=== PATIENT | male | born 1965 | race Caucasian/White ===

== ENCOUNTER 2024-10-01 09:13 | Emergency (ER) | payer BC ==
[2024-10-01 09:59] LABS: BASOPHILS PERCENT AUTO 0.9 % (0.3-3.8); EOSINOPHILS ABSOLUTE AUTO 0.4 x10-3/uL (0.0-0.6); EOSINOPHILS PERCENT AUTO 8.2 % (0.1-6.8); HEMATOCRIT 50.9 % (38.3-50.1); HEMOGLOBIN 17.3 g/dL (12.9-17.7); LYMPHOCYTES ABSOLUTE AUTO 1.1 x10-3/uL (0.5-4.5); LYMPHOCYTES PERCENT AUTO 24.4 % (15.8-45.3); MEAN CORPUSCULAR HEMOGLOBIN 34.7 pg (27.0-33.3); MEAN CORPUSCULAR HGB CONC 33.9 g/dL (28.7-35.3); MEAN CORPUSCULAR VOLUME 102.3 fL (80.8-98.7); MEAN PLATELET VOLUME 7.3 fL (6.7-11.0); MONOCYTES ABSOLUTE AUTO 0.7 x10-3/uL (0.0-1.2); MONOCYTES PERCENT AUTO 14.2 % (5.5-15.2); NEUTROPHILS ABSOLUTE AUTO 2.5 x10-3/uL (1.7-6.9); NEUTROPHILS PERCENT AUTO 52.3 % (40.3-71.8); PLATELET COUNT,PLT 239 x10(3)uL (117-477); RED CELL DISTRIBUTION WIDTH 18.3 % (12.4-15.0); WHITE BLOOD CELL COUNT,WBC 4.7 x10-3/uL (3.2-10.1)
[2024-10-01 09:59] LABS: APPEARANCE,URINE CLEAR (CLEAR); BILIRUBIN,URINE NEGATIVE (NEGATIVE); COLOR,URINE YELLOW (YELLOW); GLUCOSE,URINE NORMAL (NORMAL); KETONES,URINE NEGATIVE (NEGATIVE); LEUKOCYTE ESTERASE,URINE NEGATIVE (NEGATIVE); NITRITE,URINE NEGATIVE (NEGATIVE); OCCULT BLOOD,URINE LARGE (NEGATIVE); PROTEIN,URINE TRACE mg/dL (NEGATIVE); UROBILINOGEN,URINE NORMAL (NEGATIVE)
[2024-10-01 10:00] LABS: BLOOD UREA NITROGEN,BUN 9 mg/dL (7-18); CALCIUM 8.2 mg/dL (8.6-10.2); CARBON DIOXIDE,CO2 29 mmol/L (21-32); CHLORIDE,CL 106 mmol/L (100-110); EST CRCL DRUG DOSING (CG) 62.75 mL/min; ESTIMATED GFR 88 mL/min (>60); GLUCOSE RANDOM 95 mg/dL (80-116); POTASSIUM,K 3.9 mmol/L (3.5-5.3); SODIUM,NA 142 mmol/L (135-145)
[2024-10-01 10:06] LABS: A/G RATIO 0.6; ALANINE AMINOTRANSFERASE,ALT 36 U/L (12-36); ALBUMIN 2.8 g/dL (3.5-5.2); ALKALINE PHOSPHATASE 77 IU/L (56-112); ASPARTATE AMNIOTRANSFERASE,AST 53 IU/L (5-25); BILIRUBIN TOTAL 0.3 mg/dL (0.1-1.3); PROTEIN TOTAL,TP 7.8 g/dL (6.0-8.0)
[2024-10-01 10:13] LABS: BACTERIA,URINE FEW (NS); SQUAMOUS EPITHELIAL CELLS,UR OCCASIONAL (NS,R,O); WBC,URINE 0-5 (0-5)
[2024-10-01 10:16] LABS: RED BLOOD CELL COUNT 4.98 x10(6)uL (3.90-5.90)
== END 2024-10-01 10:36 | disposition home or self-care (01) ==
LOC: FB.ED 09:13
DX: J18.9 Pneumonia, unspecified organism (principal); K21.9 Gastro-esophageal reflux disease without esophagitis; F17.210 Nicotine dependence, cigarettes, uncomplicated; Z21 Asymptomatic human immunodeficiency virus [HIV] infection status
CPT/HCPCS: 36415; 71045; 80053; 81001; 83690; 85025; 86359; 86360; 93005; 93010; 99283; 99285